=== PATIENT | male | born 2000 | race Caucasian/White ===

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

== ENCOUNTER 2025-09-11 11:14 | Observation (INO) ==
--- NOTE | 2025-09-04 08:31 | Anesthesiology Consultation ---
Date of Service September 04, 2025 Assessment & Plan (1) Encounter for pre-operative examination: Infectious disease screening: Per assessment on 09/01/25- No known recent infectious disease contacts or current infectious disease symptoms. Chart Review Chart Review: Acceptable Risk for Surgery and Patient NOT seen in Pre Admission Testing History Surgery Operation Date: 09/11/25 12:30 Proposed Procedures p Lefort 1 Advancement with Bone Graft and - Cuauhtemoc Costa DMD s Removal of Impacted Teeth #17, 32 - Cuauhtemoc Costa DMD Height/Weight Height: 6 ft 2 in Weight: 79.379 kg Allergies Allergy/AdvReac Type Severity Reaction Status Date / Time No Known Allergies Allergy Verified 09/03/25 09:56 Medications Home Medications Medication Instructions Recorded Confirmed Last Taken No Known Home Medications 08/14/24 09/03/25 Unknown Past Medical History Medical History Mandibular hypoplasia Past Family History Family History Mother Cancer FHx: brain aneurysm Father Cancer Grandmother Cancer Other No family history of adverse response to anesthesia No pertinent family history Past Surgical History Surgical History H/O reduction of closed fracture (2013) left arm S/P tonsillectomy (06/2022) Social History Smoking Status: Never smoker Do You Dip or Chew Tobacco: No Hx Alcohol Use: Yes Alcohol type: beer, wine and hard liquor alcohol intake frequency: a few times a month Hx Substance Use: No substance use type: does not use Lab Results Anesthesia Preop Results Results Anesthesia Widget: WBC 8.01 K/ul (4.8-10.8) 09/02/25 Hgb 14.7 g/dl (14.0-18.0) 09/02/25 Hct 44.5 % (42.0-52.0) 09/02/25 Plt 297 K/uL (130-400) 09/02/25 Na 140 mmol/L (136-145) 09/02/25 K 4.3 mmol/L (3.5-5.1) 09/02/25 Cl 105 mmol/L (98-107) 09/02/25 CO2 29 mmol/L (21-32) 09/02/25 PT 11.5 Seconds (9.0-12.0) 09/02/25 INR 1.1 (0.9-1.1) 09/02/25 Blood Type O Positive 09/02/25 Antibody Screen NEGATIVE 09/02/25
[2025-09-11] MEDS ORDERED: ROCURONIUM BROMIDE 10 MG/ML 5 ML VIAL IV ONE (11:28)
[2025-09-11] MEDS ORDERED: PROPOFOL IV EMULSION 10 MG/ML 20 ML VIAL IV ONE (11:28)
[2025-09-11] MEDS ORDERED: ONDANSETRON INJ 2 MG/ML 2 ML VIAL ONE (11:28)
[2025-09-11] MEDS ORDERED: DEXAMETHASONE SOD INJ 4 MG/ML VIAL ONE (11:28)
[2025-09-11] MEDS ORDERED: LIDOCAINE 2% 2 ML VIAL/AMP(20MG/ML) INFIL ONE (11:28)
[2025-09-11] MEDS ORDERED: MIDAZOLAM HCL 1 MG/ML 2ML VIAL ONE (11:29)
[2025-09-11] MEDS ORDERED: SUGAMMADEX SODIUM 200 MG/2 ML VIAL IV ONE (11:29)
[2025-09-11] MEDS: LR 15ML/HR IV SCH (11:35)
[2025-09-11] MEDS ORDERED: KETAMINE HCL 10MG/ML SYR ONE (11:57)
[2025-09-11] MEDS ORDERED: HYDROmorphone INJ 1 MG/ML SYRINGE IV PRN (12:04)
[2025-09-11] MEDS ORDERED: ONDANSETRON INJ 2 MG/ML 2 ML VIAL IV PRN ×2 (12:04→16:18)
[2025-09-11] MEDS ORDERED: ATROPINE SULFATE 0.1 MG/ML 10ML SYR IV PRN (12:04)
[2025-09-11] MEDS ORDERED: PROMETHAZINE HCL 6.25 MG in SODIUM CHLORIDE 0.9% 50 ML IV PRN (12:04)
--- NOTE | 2025-09-11 12:09 | History & Physical Bridge Note ---
Date of Service September 11, 2025 History & Physical Bridge Note I have examined the patient, reviewed the History & Physical and in the interval since the performance of the History & Physical I have noted the following changes of clinical significance: no changes noted. OK for the planned surgery
[2025-09-11] MEDS ORDERED: OXYMETAZOLINE 0.05% 30 ML BTL ONE (12:11)
[2025-09-11] MEDS ORDERED: HYDROmorphone INJ 2 MG/ML SYR/VIAL ONE (13:30)
[2025-09-11] MEDS ORDERED: LABETALOL HCL IV 5 MG/ML 20ML IV ONE (14:04)
[2025-09-11] MEDS: CHLORHEXIDINE GLUCONATE 0.12% 480 ML MT ONE (14:44)
[2025-09-11] MEDS: TRIAMCINOLONE ACET 0.1% OINT 15 GM TUBE ONE (15:39)
[2025-09-11] MEDS: BUPIVACAINE/EPINEPHRINE 0.5% 1:200,000 1.8 ML CARP ONE ×2 (15:39)
[2025-09-11] MEDS ORDERED: OXYMETAZOLINE 0.05% 30 ML BTL PRN (16:18)
[2025-09-11] MEDS ORDERED: SODIUM CHLORIDE 0.65% NA SOLN 45 ML (OCEAN) PRN (16:18)
[2025-09-11] MEDS ORDERED: HYDROcodone/APAP 7.5/325mg/15mL ELIX 15 ML/CUP PO PRN ×2 (16:18)
[2025-09-11] MEDS ORDERED: LORazepam Inj 1 MG in SYRINGE 0.5 ML IV PRN (16:18)
[2025-09-11] MEDS ORDERED: MoRPHine SULFATE 4 MG/ML 1 ML CARP\\VIAL IV PRN (16:18)
[2025-09-11] MEDS: SURGICEL ABSORB HEMOSTAT 2IN X 14IN TOP ONE (16:20)
--- NOTE | 2025-09-11 16:39 | Post Operative Brief Note ---
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, mandibular prognathism I identified the patient and participated in the time-out.: Yes Procedure Operation Date: 09/11/25 12:30 Actual Procedures p Lefort 1 Advancement with Bone Graft(Not Applicable) CPT 10057 - Cuauhtemoc Costa DMD placement of surgical splint CPT 74265 Placement of fixation devices CPT 11979H Removal of malposed teeth # 1 and 16 D7140 x 2 Removal of impacted teeth 17 and 32 D7230 x 2 Cuauhtemoc Costa DMD Surgeon Cuauhtemoc Costa DMD Emblem Maker none Estimated Blood Loss 15 Findings Consistent with Post-Op Diagnosis maxillary deviation retrognathism and cross bite Malpose wisdom teeth Specimens Specimen Description: None per surgeon Complications none Disposition Accompanied Patient To Recovery: Yes
[2025-09-11] MEDS ORDERED: ACETAMINOPHEN 325 MG TAB PO PRN (16:47)
--- NOTE | 2025-09-11 16:49 | Anesthesiology Progress Note ---
Date of Service September 11, 2025 Anesthesia Post Procedure Vital Signs Vital Signs: Temp Pulse Pulse Resp BP Pulse Ox O2 Del Method 09/11/25 16:40 36.3 C L 88 15 138/84 97 Nasal Cannula 09/11/25 16:30 85 14 135/85 95 Nasal Cannula 09/11/25 16:20 80 13 143/81 H 96 Nasal Cannula 09/11/25 16:14 36.3 C L 99 H 12 140/86 97 Nasal Cannula 09/11/25 11:11 37.2 C 63 20 145/89 H 99 Room Air O2 Flow Rate 09/11/25 16:40 2 09/11/25 16:30 2 09/11/25 16:20 2 09/11/25 16:14 2 09/11/25 11:11 Transfer of Care Handoff Completed per policy Notes Mental Status: alert / awake / arousable and participated in evaluation Patient Amnestic to Procedure: Yes Nausea / Vomiting: adequately controlled Pain: adequately controlled Airway Patency, RR, SpO2: stable & adequate BP & HR: stable & adequate Hydration State: stable & adequate Anesthetic Complications: no major complications apparent and Pt Satisfied with anesthetic care
--- NOTE | 2025-09-11 17:46 | XRay Report ---
3 views of the mandible are submitted for review. Findings: No fracture or dislocation is seen. No significant arthritic changes are noted. No other osseous abnormality is identified. There are no radiopaque foreign bodies. Impression: Unremarkable radiographs of the mandible Electronically signed by Alfa Mccormack 09-11-2025 5:45 PM
[2025-09-11] MEDS: D5W AND 1/2NSS + 20MEQ KCL 20 MEQ/1,000 ML BAG IV SCH (18:11)
[2025-09-11] MEDS: KETOROLAC 30 MG/ML VIAL IV SCH (18:11)
[2025-09-11] MEDS: dexAMETHasone 6 MG in SYRINGE 0 ML IV SCH (18:55)
[2025-09-11 19:56] VITALS: RESP 16
[2025-09-11] MEDS: CHLORHEXIDINE GLUCONATE 0.12% 480 ML MT SCH (21:55)
[2025-09-11] MEDS: TRIAMCINOLONE ACET 0.1% OINT 15 GM TUBE EXT SCH (21:56)
[2025-09-11 23:25] VITALS: O2SAT 96
[2025-09-12 03:49] VITALS: PULSE 80; TEMP 97.9
[2025-09-12 07:09] VITALS: BP 125/70
--- NOTE | 2025-09-12 15:41 | Operative Report ---
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, mandibular prognathism WISDOM TEETH D7230 17,32 WISDOM TEETH D7140 1,16 LEFORT I WITH GRAFT CPT 09684 SURGICAL SPLINT CPT 81802 I identified the patient and participated in the time-out.: Yes Procedure Operation Date: 09/11/25 12:30 Actual Procedures p Lefort 1 Advancement with Bone Graft(Not Applicable) - Cuauhtemoc Costa DMD s Removal of Impacted Teeth #17, 32(Not Applicable) - Cuauhtemoc Costa DMD WISDOM TEETH D7230 17,32 WISDOM TEETH D7140 1,16 LEFORT I WITH GRAFT CPT 55791 SURGICAL SPLINT CPT 15609 Surgeon Cuauhtemoc Costa DMD [employer] none Estimated Blood Loss 15 Findings Consistent with Post-Op Diagnosis RETROGNATHIC UPPER JAW Specimens NONE Drains NONE Anesthesia Type General Complications NONE Disposition Accompanied Patient To Recovery: Yes Indications 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 A time out was take for patient ID, antibiotics, equipment and position verification once all agreed the procedure began. Local anesthesia was given into the maxillary area using Marcaine with a vasoconstrictor ( 1.8 ml per site). A throat pack was placed after the oral cavity was irrigated with saline. Once a surgical level of anesthesia was obtained and the local anesthesia was given time for the blocks the surgery was started. CPT 69047 LeFort I osteotomy with bone graft CPT 69467 Surgical Stent D7230 x 2 for 17,32 D7140 x 2 for 1 and 16 Placement of MMF screws To secure skeletal fixation while achieving the direct fixation I placed 4 Maxillary/Mandibular Fixation screws (MMF) in the cuspid area or 6,11,22,27. The 4 MMF screws were placed and were stable. They will be removed in 10-14 days in my office . [place] teeth removal Upper wisdom teeth D7140 x 2 simple extraction # 1 and 16 The 2 wisdom teeth were removed with a dental forceps. There was no sinus involvement. Lower wisdom teeth PBI # 17 and 32 The full thick Muco-periosteal flap was made on the external oblique ridge to avoid the lingual nerve. The flap was reflected to expose the impacted tooth. The drill with a round bur was used to remove bone. The lingual plate was protected. The tooth was removed with a 301 elevator, the nerve was intact, there was no bleeding. The bone was trimmed, smoothed and the flap was closed with 2-0 chromic LeFort I with bone graft CPT 17095 Place surgical stent CPT 98598 I turned my attention now to the maxilla. On the preoperative evaluation, the maxilla needed to be advanced approximately 5 mm and rotated about 2-3 mm to the right To accomplish this, a [place] I maxillary osteotomy was carried out. An electrocautery instrument was used to make an incision from the 1st bicuspid area on the right side across the midline to the opposite bicuspid area. The tissues reflected in the usual manner to expose the mucoperiosteal tissue and to get good exposure of the anterior nasal spine, the roots of the maxillary anterior and posterior teeth and the piriform rim. Once this was reflected, I was able to then reflect posteriorly to get good access to the pterygoid plate areas. I then spent a lot of time dissecting around the nasal bones to ensure that we had good visualization of the floor of the nose and the piriform rims. Now that I had excellent exposure a retractor was placed intranasally and I made an osteotomy parallel to the occlusal plane from the piriform rim posteriorly to the tuberosity region. I then completed a similar osteotomy on the left side of the maxilla. Once this was done, a curved osteotome was used to osteotomize the pterygoid plate from the tuberosity region of both right and left sides. A ball curved osteotome was used to osteotomize the medial lopez of the maxillary sinus. I now used a straight osteotome with a protective edge to osteotomize the nasal septal tissue. I now made sure all the bone cuts were completed. I was now able to reflect all the nasal mucoperiosteal tissue of the floor of the nose. By doing this, the maxilla was quite easily downfractured. The downfracture occurred without any problems and we had preservation of the neurov ascular bundle on the left posteriorly, however I needed to cut the bundle on the right to allow access to the posterior bone which prevented mobilization of the maxilla. Once this was done the maxilla was mobile. With blunt and sharp dissection as well as removing a lot of bony interferences, I was able to make the maxilla very passive. I then irrigated the maxillary sinuses of any debris and/or polyps that were noted. Hemostasis was in good control. I made sure that the maxilla was quite passive. The preformed surgical appliance was applied to the mandible and the maxilla was easily seated into the appliance. 25 g SSW was used for fixation. and the maxillary mandibular complex was then rotated superiorly. I noted that the maxilla was now positioned in its new position which was about 5 mm from the previous position which was noted on the maxilla due to the reference lines that I placed. At this time, I irrigated the maxilla and the maxillary sinuses and felt that all hemostasis was in control and all bony margins were positioned.as per my plan. I noted that there were some rents in the mucoperiosteal tissues of the nose, I repaired the tissues with a few 3 -0 chromic and then placed Surgicel over the site. At this time, the maxillary mandibular complex was superiorly repositioned. Great care was taken to make sure that the condyles were well seated within the glenoid fossa. Being satisfied with this, I now placed 4 bone plates. I then used titanium screws and obtained direct fixation of the maxilla with the bone plates. Once this was accomplished, I now removed the intermaxillary fixation, I noted that the maxilla was extremely stable and the occlusion was reproducible. The patient had a good range of motion without clicks or pops or deviations. The maxilla was stable and the osteotomy site was stable. At this time, we irrigated the oral cavity with copious amounts of normal saline and then suctioned it dry. Hemostasis was in good control. I now placed the bone graft material into the right and left osteotomies sites by wedging into place. The nasal septum was in place with out and buckling. The maxilla was irrigated and suctioned dry. Hemostasis was excellent. The bony fixation was stable. Initially, I used an alar cinch technique to grasp the alar cartilages of the nose and then placed a 3-0 [place] suture in a [id number] pattern to ensure proper anatomical support to the base of the nose and piriform rim areas. After this was accomplished, another suture was placed slightly posteriorly to this to also add to the dimensional strength of the floor of the nose. Once this was done, a V-Y closure of the mucoperiosteal tissues of the upper lip was carried out with the use of a 4-0 Vicryl suture. When all was said and done, we had an excellent soft tissue closure with good anatomical support to the upper lip and nasal facial and nasolabial area. At this time, 2 dental elastics were applied in the cuspid areas to allow for functional elastic stability. I now placed a gauze pressure dressing to the upper lip. The patient was allowed to recover in the usual manner. When he was fully recovered, he was extubated. His vital signs were extremely stable. At this time, the anesthesia department transferred the patient to the hospital litter and he will be taken to the recovery room. I attest to the content of the Intraoperative Record and any orders documented therein. Any exceptions are noted below.
--- NOTE | 2025-09-12 15:43 | Progress Note ---
Date of Service September 12, 2025 Assessment & Plan Admission and Anticipated Discharge Date Admission Date: September 11, 2025 Subjective Orthognathic surgery post op note at 24 HOURS Excellent result, ROM improving Tissue tone, gingival tissue--excellent Occlusion very stable with a reproducible bite. No TMJ issues-pain, nose, pop. Reviewed use of functional elastics Orthodontic followup pending Slight nasal congestion, no bleeding, septum well positioned. No sinus issues Facial alignment excellent Reviewed post op care--diet, oral care, use of elastics, activities. Next appointment set up for: MondaySep 15 at 10:45 Overall excellent result from recent OG surgery RTC for continued follow up Results & Data Vital Signs (Past 12 Hours) Vital Signs Temp Pulse Resp BP Pulse Ox O2 Del Method 09/12/25 07:08 36.6 C 80 16 125/70 96 Room Air PG Care Time/CCT Total # of Minutes Spent Total Time Spent with Patient: Total time spent is greater than 50% in coordination of care (as documented) at patient's floor/unit and/or counseling patient: Coding Level of Care Code None
== END 2025-09-12 16:36 | disposition home or self-care (01) ==
LOC: 3E 11:14 → ASU 11:14